=== PATIENT | male | born 1935 | race Caucasian/White ===

== ENCOUNTER 2017-02-24 10:09 | Emergency (ER) | payer MEDICARE, OTHER ==
[2017-02-24 10:16] VITALS: BP 156/111
[2017-02-24] MEDS ORDERED: NORMAL SALINE 1000 ML 1,000 ML IV ONE (10:23)
[2017-02-24] MEDS ORDERED: ONDANSETRON HCL INJ/PF 4 MG/2 ML SDV IV ONE (10:23)
[2017-02-24] MEDS ORDERED: MORPHINE SULFATE 10 MG/ML INJ IV ONE ×3 (10:23→11:35)
--- NOTE | 2017-02-24 10:26 | ER Document Report ---
ED Medical Screen (RME) - General Chief Complaint: Flank Pain Stated Complaint: FLANK PAIN Time Seen by Provider: 02/24/17 10:16 Mode of Arrival: Wheelchair Information source: Patient Notes: This is an 82-year-old male with multiple medical problems who presents with severe right flank pain. This pain began this morning upon awakening. He has had nausea and vomiting. He states this feels like prior kidney stones. No fevers or chills. He has a history of A. fib and is currently taking Pradaxa. He has not taken his medication today including his blood pressure medicine I have greeted and performed a rapid initial assessment of this patient. A comprehensive ED assessment and evaluation of the patient, analysis of test results and completion of the medical decision making process will be conducted by additional ED providers. TRAVEL OUTSIDE OF THE [place] IN LAST 30 DAYS: No - Related Data Allergies/Adverse Reactions: No Known Allergies Allergy (Verified 02/24/17 10:12) Past Medical History - Past Medical History Cardiac Medical History: Reports: Hx Coronary Artery Disease, Hx Hypercholesterolemia, Hx Hypertension Denies: Hx Atrial Fibrillation Pulmonary Medical History: Reports: Hx COPD - 1y fev1=38% started symbicort spiriva Renal/ Medical History: Reports: Hx Kidney Stones. 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 Physical Exam - Vital signs Vitals: Temp Pulse Resp BP Pulse Ox 97.6 F 99 22 H 156/111 H 93 02/24/17 10:13 02/24/17 10:13 02/24/17 10:02/24/17 10:13 02/24/17 10:13 - General In distress: Mild Notes: mild distress secondary to pain, alert and conversant - Cardiovascular Rhythm: Irregularly irregular Heart sounds: S1 appreciated, S2 appreciated Course - Vital Signs Vital signs: Temp Pulse Resp BP Pulse Ox 97.6 F 99 22 H 156/111 H 93 02/24/17 10:13 02/24/17 10:13 02/24/17 10:13 02/24/17 10:13 02/24/17 10:13
[2017-02-24 10:57] LABS: ABSOLUTE BASOPHILS # (AUTO) 0.1 10^3/uL (0.0-0.2); ABSOLUTE EOSINOPHILS # (AUTO) 0.4 10^3/uL (0.0-0.6); ABSOLUTE LYMPHOCYTES (AUTO) 2.1 10^3/uL (0.5-4.7); ABSOLUTE MONOCYTES (AUTO) 0.6 10^3/uL (0.1-1.4); BASOPHILS % (AUTO) 0.9 % (0-2); EOSINOPHILS % (AUTO) 2.9 % (0-6); HEMATOCRIT 48.4 % (37.9-51.0); HEMOGLOBIN 15.5 g/dL (13.5-17.0); HGB HCT DIFFERENCE -1.9; LYMPHOCYTES % (AUTO) 14.5 % (13-45); MEAN CORPUSCULAR HGB CONC 32.1 g/dL (32.0-36.0); MEAN CORPUSCULAR VOLUME 84 fl (80-97); MONOCYTES % (AUTO) 4.3 % (3-13); RED BLOOD COUNT 5.75 10^6/uL (4.35-5.55); RED CELL DISTRIBUTION WIDTH 15.1 % (11.5-14.0); SEGMENTED NEUTROPHILS % (AUTO) 77.4 % (42-78); WHITE BLOOD COUNT 14.3 10^3/uL (4.0-10.5)
[2017-02-24 11:06] LABS: APPEARANCE,URINE CLOUDY; BILIRUBIN,URINE NEGATIVE (NEGATIVE); GLUCOSE, URINE NEGATIVE (NEGATIVE); KETONES,URINE NEGATIVE (NEGATIVE); LEUKOCYTE ESTERASE,URINE NEGATIVE (NEGATIVE); NITRITE,URINE NEGATIVE (NEGATIVE); PROTEIN,URINE 100 mg/dL (NEGATIVE); URINE SPECIFIC GRAVITY 1.016; UROBILINOGEN,URINE NEGATIVE mg/dL (<2.0)
[2017-02-24 11:14] LABS: ALANINE AMINOTRANSFERASE 26 U/L (21-72); ALBUMIN 4.1 g/dL (3.5-5.0); ALKALINE PHOSPHATASE 84 U/L (38-126); ANION GAP 13 (5-19); ASPARTATE AMINO TRANSFERASE 25 U/L (17-59); BILIRUBIN,DIRECT 0.4 mg/dL (0.0-0.4); BILIRUBIN,TOTAL 0.8 mg/dL (0.2-1.3); BLOOD UREA NITROGEN 23 mg/dL (7-20); CALCIUM 9.2 mg/dL (8.4-10.2); CARBON DIOXIDE 22 mmol/L (22-30); CHLORIDE 106 mmol/L (98-107); CREATININE RESULT 1.03 mg/dL (0.52-1.25); GLUCOSE 174 mg/dL (75-110); POTASSIUM 4.7 mmol/L (3.6-5.0); SODIUM 140.8 mmol/L (137-145); TOTAL PROTEIN 7.3 g/dL (6.3-8.2)
--- NOTE | 2017-02-24 11:21 | RADIOLOGY REPORT (SQ) ---
EXAM DESCRIPTION: CT LTD RENAL STONE PROTOCOL ON COMPLETED DATE/TIME: 02/24/2017 11:04 am REASON FOR STUDY: right flank pain COMPARISON: None. TECHNIQUE: CT scan of the abdomen and pelvis performed without intravenous or oral contrast. Images reviewed with lung, soft tissue, and bone windows. Reconstructed coronal and sagittal MPR images revi ewed. All images stored on PACS. All CT scanners at this facility use dose modulation, iterative reconstruction, and/or weight based d osing when appropriate to reduce radiation dose to as low as reasonably achievable (ALARA). [facility]: Dose Right [facility]: CareDose [facility]: Dose Right [facility]: Teradose 4D [facility]: Page365 RADIATION DOSE: 10.46mGy. LIMITATIONS: None. FINDINGS: LOWER CHEST: No significant findings. No nodules or infiltrates. NON-CONTRASTED LIVER, SPLEEN, ADRENALS: Evaluation limited by lack of IV contrast. No identified sign ificant masses. PANCREAS: No masses. No peripancreatic inflammatory changes. GALLBLADDER: No identified stones by CT criteria. No inflammatory changes to suggest cholecystitis. RIGHT KIDNEY AND URETER: No suspicious masses. Assessment limited by lack of IV contrast. Several c alculi within the right kidney with mild to moderate hydronephrosis and perinephric stranding seconda ry to 4 mm calculus within the proximal ureter. LEFT KIDNEY AND URETER: No suspicious masses. Assessment limited by lack of IV contrast. No signifi cant calcifications. No hydronephrosis or hydroureter. AORTA AND RETROPERITONEUM: Atherosclerotic calcifications. No aneurysm. No retroperitoneal masses or adenopathy. BOWEL AND PERITONEAL CAVITY: Scattered colonic diverticula. No obvious masses or inflammatory change s. No free fluid. APPENDIX: Normal. PELVIS, BLADDER, AND ABDOMINAL WALL:No abnormal masses. No free fluid. Bladder normal. Tiny fat cont aining periumbilical and bilateral inguinal hernias. BONES: Stable degree of degenerative change without fracture or suspicious osseous lesion. OTHER: No other significant finding. IMPRESSION: RIGHT-SIDED NEPHROLITHIASIS WITH MILD TO MODERATE HYDRONEPHROSIS SECONDARY TO 4 MM CALCU NUBIA WITHIN THE PROXIMAL URETER. ADDITIONAL CHRONIC CHANGES ABOVE. TECHNICAL DOCUMENTATION: JOB ID: [id number] Quality ID # [id number]: Final reports with documentation of one or more dose reduction techniques (e.g., Au tomated exposure control, adjustment of the mA and/or kV according to patient size, use of iterative reconstruction technique) 2010 [facility], [place] [employer]- All Rights Reserved
[2017-02-24] MEDS ORDERED: KETOROLAC TROMETHAMINE INJ/PF 30 MG/1 ML SDV IV ONE (11:35)
[2017-02-24] MEDS ORDERED: TAMSULOSIN HCL 0.4 MG CAP.SR.24H PO ONE (11:37)
--- NOTE | 2017-02-24 12:36 | ER Document Report ---
ED General - General Chief Complaint: Flank Pain Stated Complaint: FLANK PAIN Time Seen by Provider: 02/24/17 10:16 Mode of Arrival: Wheelchair TRAVEL OUTSIDE OF THE [place] IN LAST 30 DAYS: No - HPI Patient complains to provider of: Right flank pain Notes: Patient is coming in for evaluation of right flank pain. Patient states right flank pain started last night. Patient states history of kidney stones pain feels similar to his kidney stones in the past. States he is nauseous denies vomiting. Patient has a history of atrial fibrillations currently on Pradaxa. Patient denies any fevers chills dysuria hematuria - Related Data Allergies/Adverse Reactions: No Known Allergies Allergy (Verified 02/24/17 10:12) Past Medical History - General Information source: Patient - Social History Smoking Status: Former Smoker Chew tobacco use (# tins/day): No Frequency of alcohol use: None Drug Abuse: None Family History: Reviewed & Not Pertinent Patient has suicidal ideation: No Patient has homicidal ideation: No - Past Medical History Cardiac Medical History: Reports: Hx Coronary Artery Disease, Hx Hypercholesterolemia, Hx Hypertension Denies: Hx Atrial Fibrillation Pulmonary Medical History: Reports: Hx COPD - 1y fev1=38% started symbicort spiriva Renal/ Medical History: Reports: Hx Kidney Stones. 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 Review of Systems - Review of Systems Constitutional: No symptoms reported EENT: No symptoms reported Cardiovascular: No symptoms reported Respiratory: No symptoms reported Gastrointestinal: No symptoms reported Genitourinary: Flank pain Male Genitourinary: No symptoms reported Musculoskeletal: No symptoms reported Skin: No symptoms reported Hematologic/Lymphatic: No symptoms reported Neurological/Psychological: No symptoms reported -: Yes All other systems reviewed and negative Physical Exam - Vital signs Vitals: Temp Pulse Resp BP Pulse Ox 97.6 F 99 22 H 156/111 H 93 02/24/17 10:13 02/24/17 10:13 02/24/17 10:13 02/24/17 10:13 02/24/17 10:13 Interpretation: Normal - General General appearance: Appears well, Alert - HEENT Head: Normocephalic, Atraumatic Eyes: Normal Pupils: PERRL - Respiratory Respiratory status: No respiratory distress Chest status: Nontender Breath sounds: Normal Chest palpation: Normal - Cardiovascular Rhythm: Regular Heart sounds: Normal auscultation Murmur: No - Abdominal Inspection: Normal Distension: No distension Bowel sounds: Normal Tenderness: Nontender Organomegaly: No organomegaly - Back Back: Normal, Nontender - Extremities General upper extremity: Normal inspection, Nontender, Normal color, Normal ROM , Normal temperature General lower extremity: Normal inspection, Nontender, Normal color, Normal ROM , Normal temperature, Normal weight bearing. No: Megha's sign - Neurological Neuro grossly intact: Yes Cognition: Normal Orientation: AAOx4 [place] Coma Scale Eye Opening: Spontaneous [place] Coma Scale Verbal: Oriented [place] Coma Scale Motor: Obeys Commands [place] Coma Scale Total: 15 Speech: Normal Motor strength normal: LUE, RUE, LLE, RLE Sensory: Normal - Psychological Associated symptoms: Normal affect, Normal mood - Skin Skin Temperature: Warm Skin Moisture: Dry Skin Color: Normal Course - Re-evaluation Re-evalutation: 02/24/17 15:02 Patient coming in for right flank pain. CT scan shows 4 mm mid ureteral stone. No other signs and symptoms of critical pathology. Patient will be discharged home follow-up with his primary care physician. Patient was warned about the use of opiate medications. - Vital Signs Vital signs: Temp Pulse Resp BP Pulse Ox 97.6 F 99 17 156/111 H 90 L 02/24/17 10:13 02/24/17 10:13 02/24/17 12:02 02/24/17 10:13 02/24/17 12:02 - Laboratory Result Diagrams: 02/24/17 10:30 02/24/17 10:30 Laboratory results interpreted by me: 02/24/17 02/24/17 02/24/17 10:30 10:30 10:41 WBC 14.3 H RBC 5.75 H RDW 15.1 H Absolute Neutrophils 11.0 H BUN 23 H Glucose 174 H Urine Protein 100 H Urine Blood LARGE H Discharge - Discharge Clinical Impression: Kidney stone on right side Condition: Good Disposition: HOME, SELF-CARE Instructions: Kidney Stone ([facility]), Oral Narcotic Medication ([facility]) Additional Instructions: Your CAT scan today shows signs of a right-sided kidney stone 4 mm. Please make sure that she drink plenty water to help passage of the stone. We will give the pain medication hydrocodone or Vicodin. Please be careful in taking his medication and that this will increase risk of falling also cause constipation. I highly recommend that if you take the pain medication prescribed that you take a stool softener. He may also take Tylenol for pain control. The Zofran prescription is for nausea. Flomax is to aid in passage of the kidney stone. I would recommend following up with your primary care physician for possible referral to a urologist if you do not pass this kidney stone. Prescriptions: Ondansetron [Zofran Odt 4 mg Tablet] 4 mg PO Q4HP PRN #30 tab.rapdis PRN Reason: Docusate Sodium [Colace 100 mg Capsule] 100 mg PO DAILY #30 capsule Hydrocodone Bit/Acetaminophen [Hydrocodon-Acetaminophen 5-325] 1 each PO Q6 #20 tablet Tamsulosin HCl [Flomax] 0.4 mg PO DAILY #7 cap.er.24h
--- NOTE | 2017-02-26 09:29 | EKG REPORT ---
SEVERITY:- ABNORMAL ECG - ATRIAL FIBRILLATION MULTIFORM VENTRICULAR PREMATURE COMPLEXES BORDERLINE LEFT AXIS DEVIATION BORDERLINE PROLONGED QT INTERVAL : Confirmed by: Agustin Frances 26-Feb-2017 09:27:59
== END 2017-02-24 14:02 | disposition home or self-care (01) ==
LOC: ER 10:09
DX: N13.2 Hydronephrosis with renal and ureteral calculous obstruction (principal); R10.9 Unspecified abdominal pain; J44.9 Chronic obstructive pulmonary disease, unspecified; I25.10 Atherosclerotic heart disease of native coronary artery without angina pectoris; I10 Essential (primary) hypertension; I48.91 Unspecified atrial fibrillation; Z79.02 Long term (current) use of antithrombotics/antiplatelets; Z87.891 Personal history of nicotine dependence
CPT/HCPCS: 93005; 96376; 99284; 96374; 96375; 36415; 85025; 80053; 81001; 76380; 93010; J1885; J2270; A9270; J2405; J7030

== ENCOUNTER 2020-09-13 11:21 | Emergency (ER) | payer MEDICARE, OTHER ==
[2020-09-13 11:31] VITALS: BP 104/46
[2020-09-13] MEDS ORDERED: METHYLPREDNISOLONE INJ 125 MG/2 ML SDV IV ONE (12:55)
[2020-09-13] MEDS ORDERED: IPRATROPIUM/ALBUTEROL 0.5-2.5 MG/3 ML AMPUL NEB ONE (12:55)
--- NOTE | 2020-09-13 13:00 | ER Document Report ---
ED Medical Screen (RME) - General Chief Complaint: Cough Stated Complaint: CONJESTION Time Seen by Provider: 09/13/20 12:54 Primary Care Provider: ARIANNE DUNCAN MD [Primary Care Provider] - Follow up as needed Mode of Arrival: Ambulatory Information source: Patient, Relative Notes: Patient with an 85-year-old male comes emergency room brought in by his and sent Here by Dr. Santa patient and family patient started with a feeling that approximately 1 month ago or longer. On the he saw his physician and placed on antibiotics in the emergency room which will resolve. Not getting any better and the was called by his primary today to go any diagnosed you with pneumonia and sent him to the emergency room. Patient denies any history of fevers. He is not having a productive cough he has just been getting more more short of breath. Physical examination: Patient is a well-nourished no apparent stress examination today. Cardiac but frail-appearing 85-year-old male Cardiac: Patient displaying a regular rate and rhythm currently at 91 bpm. No murmur auscultated. Lungs: Bilateral breath sounds that are increased throughout patient is course rhonchi and respiratory expiratory wheeze noted throughout all lung knight. Abdomen: Bowel sounds present in all 4 quads. Nontender to palpation. I have greeted and performed a rapid initial assessment of this patient. A comprehensive ED assessment and evaluation of the patient, analysis of test results and completion of the medical decision making process will be conducted by additional ED providers. Dictation of this chart was performed using voice recognition software; therefore, there may be some unintended grammatical errors. TRAVEL OUTSIDE OF THE [place] IN LAST 30 DAYS: No - Related Data Allergies/Adverse Reactions: No Known Allergies Allergy (Verified 09/13/20 12:53) Home Medications: pradaxa, atorvastatin, spiriva, telmisartan, advair Past Medical History - Social History Chew tobacco use (# tins/day): No Drug Abuse: None - Past Medical History Cardiac Medical History: Reports: Hx Coronary Artery Disease, Hx Hypercholesterolemia, Hx Hypertension Denies: Hx Atrial Fibrillation Pulmonary Medical History: Reports: Hx COPD - 1y fev1=38% started symbicort spiriva Renal/ Medical History: Reports: Hx Kidney Stones. 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
[2020-09-13 14:26] LABS: ABSOLUTE BASOPHILS # (AUTO) 0.1 10^3/uL (0.0-0.2); ABSOLUTE EOSINOPHILS # (AUTO) 0.1 10^3/uL (0.0-0.6); ABSOLUTE MONOCYTES (AUTO) 1.3 10^3/uL (0.1-1.4); ABSOLUTE NEUT (AUTO) 10.6 10^3/uL (1.7-8.2); BASOPHILS % (AUTO) 0.6 % (0-2); EOSINOPHILS % (AUTO) 0.4 % (0-6); HEMATOCRIT 49.9 % (37.9-51.0); HEMOGLOBIN 16.7 g/dL (13.5-17.0); MEAN CORPUSCULAR HEMOGLOBIN 27.8 pg (27.0-33.4); MEAN CORPUSCULAR HGB CONC 33.4 g/dL (32.0-36.0); MEAN CORPUSCULAR VOLUME 83 fl (80-97); MONOCYTES % (AUTO) 9.6 % (3-13); PLATELET COUNT 234 10^3/uL (150-450); RED BLOOD COUNT 5.99 10^6/uL (4.35-5.55); RED CELL DISTRIBUTION WIDTH 15.9 % (11.5-14.0); SEGMENTED NEUTROPHILS % (AUTO) 75.4 % (42-78); TOTAL CELLS COUNTED % (AUTO) 100 %
[2020-09-13 14:48] LABS: ALBUMIN 3.6 g/dL (3.5-5.0); ALKALINE PHOSPHATASE 56 U/L (38-126); ANION GAP 7 (5-19); ASPARTATE AMINO TRANSFERASE 38 U/L (17-59); BILIRUBIN,DIRECT 0.1 mg/dL (0.0-0.4); BILIRUBIN,TOTAL 1.7 mg/dL (0.2-1.3); BLOOD UREA NITROGEN 28 mg/dL (7-20); CALCIUM 9.2 mg/dL (8.4-10.2); CARBON DIOXIDE 30 mmol/L (22-30); CHLORIDE 101 mmol/L (98-107); GLUCOSE 116 mg/dL (75-110); POTASSIUM 4.3 mmol/L (3.6-5.0); TOTAL PROTEIN 6.3 g/dL (6.3-8.2)
--- NOTE | 2020-09-13 15:25 | RADIOLOGY REPORT (SQ) ---
EXAM DESCRIPTION: CHEST SINGLE VIEW IMAGES COMPLETED DATE/TIME: 09/13/2020 3:14 pm REASON FOR STUDY: cough COMPARISON: 07/19/2015 EXAM PARAMETERS: NUMBER OF VIEWS: One view. TECHNIQUE: Single frontal radiographic view of the chest acquired. RADIATION DOSE: NA LIMITATIONS: None. FINDINGS: LUNGS AND PLEURA: Patchy left basilar airspace disease with small left effusion. No pneum othorax. Mild hyperinflation. MEDIASTINUM AND HILAR STRUCTURES: No masses. Contour normal. HEART AND VASCULAR STRUCTURES: Normal heart size. Vascular calcifications. BONES: No acute findings. HARDWARE: None in the chest. OTHER: No other significant finding. IMPRESSION: Patchy left basilar airspace disease with small left pleural effusion. TECHNICAL DOCUMENTATION: JOB ID: [id number] 2010 [employer]- All Rights Reserved Reading location - IP/workstation name: [email or web address]
--- NOTE | 2020-09-13 21:42 | ER Document Report ---
ED General - General Chief Complaint: Cough Stated Complaint: CONJESTION Time Seen by Provider: 09/13/20 12:54 Primary Care Provider: ARIANNE DUNCAN MD [COMMUNITY BASED STAFF] - Follow up as needed Mode of Arrival: Ambulatory TRAVEL OUTSIDE OF THE [place] IN LAST 30 DAYS: No - HPI Notes: 85-year-old male presents with cough. Patient states that he has had a cough occasionally productive of phlegm, shortness of breath and sinus drainage, all going on for the past 1 month. States that he was recently on an antibiotic for pneumonia. He went to see his primary care doctor today and was told that he has pneumonia and was told to come to the emergency department. He states that he is being sent to have a chest x-ray and a Covid swab. He does not believe that any new antibiotics were prescribed. He also states that he is having some right ankle swelling which he showed his doctor and was told it was a bruise. He reports somewhat chronic shortness of breath due to COPD. He currently denies chest pain, fever, N/V/D, or abdominal pain. - Related Data Allergies/Adverse Reactions: No Known Allergies Allergy (Verified 09/13/20 12:53) Home Medications: pradaxa, atorvastatin, spiriva, telmisartan, advair Past Medical History - General Information source: Patient, Relative - Social History Smoking Status: Former Smoker Chew tobacco use (# tins/day): No Drug Abuse: None Family History: Reviewed & Not Pertinent - Past Medical History Cardiac Medical History: Reports: Hx Coronary Artery Disease, Hx Hypercholesterolemia, Hx Hypertension Denies: Hx Atrial Fibrillation Pulmonary Medical History: Reports: Hx COPD - 1y fev1=38% started symbicort spiriva Renal/ Medical History: Reports: Hx Kidney Stones. 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 Review of Systems - Review of Systems Constitutional: denies: Fever EENT: No symptoms reported Cardiovascular: denies: Chest pain Respiratory: See HPI Gastrointestinal: No symptoms reported Genitourinary: No symptoms reported Male Genitourinary: No symptoms reported Musculoskeletal: Ankle swelling Skin: Change in color - Ja Hematologic/Lymphatic: No symptoms reported Neurological/Psychological: No symptoms reported Physical Exam - Vital signs Vitals: Temp Pulse Resp BP Pulse Ox 97.9 F 91 18 104/46 L 95 12/28/20 11:28 09/13/20 11:28 09/13/20 11:28 09/13/20 11:28 09/13/20 11:28 - General General appearance: Appears well, Alert In distress: None - HEENT Head: Normocephalic, Atraumatic Extraocular movements intact: Yes Pupils: PERRL - Respiratory Respiratory status: No respiratory distress. No: Labored, Tachypnea Breath sounds: Rhonchi - Left base. No: Wheezing - Cardiovascular Rhythm: Irregularly irregular Heart sounds: Normal auscultation Normal capillary refill: Yes - Abdominal Tenderness: Nontender - Extremities General lower extremity: No: Edema Notes: There is ecchymosis inferior to the right medial ankle, no tenderness, mild associated swelling - Neurological Neuro grossly intact: Yes Cognition: Normal Orientation: AAOx4 - Psychological Associated symptoms: Normal affect - Skin Skin Temperature: Warm Course - Re-evaluation Re-evalutation: 85-year-old male here with productive cough and shortness of breath, history of COPD, seen by his PCP today and clinically diagnosed with pneumonia. On exam patient is alert and well-appearing, he is afebrile and hemodynamically stable, he is not hypoxic on room air. He does have some rhonchi in the left lower lobe. He does not appear to be overtly edematous. Chest x-ray done through triage which does show a left lower consolidation. Reviewed labs obtained. Leukocytosis present, expect given his pneumonia. Electrolytes within normal limits. Creatinine within normal limits. No elevation of lactic acidosis. LFTs within normal limits. Will add on BNP. Start treatment with guaifenesin and Augmentin. Patient's EKG showing A. fib with RVR, at time of exam patient with normal rate. BNP elevated to the 600s, he has no previous values to compare to. Given no peripheral edema and no pulmonary edema, believe that he will be able to follow- up with his primary care doctor for an echo. I discussed results with patient. He is eager to go home. Will prescribe Augmentin and azithromycin given his comorbidities. Strict return precautions given, stable at time of discharge. - Vital Signs Vital signs: Temp Pulse Resp BP Pulse Ox 97.9 F 91 18 104/46 L 95 09/13/20 11:28 09/13/20 11:28 09/13/20 11:28 09/13/20 11:28 09/13/20 11:28 - Laboratory Results Result Diagrams: 09/13/20 13:59 09/13/20 13:59 Laboratory Results Interpreted: 09/13/20 09/13/20 09/13/20 13:59 13:59 13:59 WBC 14.0 H RBC 5.99 H RDW 15.9 H Absolute Neuts (auto) 10.6 H BUN 28 H Glucose 116 H Total Bilirubin 1.7 H NT-Pro-B Natriuret Pep 688 H Critical Laboratory Results Reviewed: No Critical Results - Radiology Results Critical Radiology Results Reviewed: No Critical Results - EKG Interpretation by Me Additional EKG results interpreted by me: EKG is interpreted by me. A. fib with RVR, rate 143. Narrow QRS, prolonged QT. ST segment depression, likely rate related. No STEMI. Discharge - Discharge Clinical Impression: CAP (community acquired pneumonia) Qualifiers: Laterality: left Lung location: lower lobe of lung Qualified Code(s): J18.9 - Pneumonia, unspecified organism Disposition: HOME, SELF-CARE Instructions: COVID-19 Guidance for Persons Under Investigation Additional Instructions: Please begin antibiotics for pneumonia. You should receive Covid swab results in 2 to 3 days. Please quarantine at home until the results received. Please have close follow-up with your primary care doctor, discussed obtaining outpatient echo to evaluate for signs of heart failure. Return to the emergency department for any concerning worsening symptoms. Prescriptions: Amoxicillin/Potassium Clav [Augmentin 875-125 Tablet] 1 tab PO Q12 7 Days #14 tablet Azithromycin 250 mg PO ASDIR 5 Days #6 tablet Referrals: ARIANNE DUNCAN MD [COMMUNITY BASED STAFF] - Follow up as needed
[2020-09-13] MEDS ORDERED: AMOXICILLIN TR/POT CLAVULANATE 875-125 MG TAB PO ONE (22:04)
--- NOTE | 2020-09-14 08:58 | EKG REPORT ---
SEVERITY:- ABNORMAL ECG - ATRIAL FIBRILLATION, V-RATE 113-[address] DEPRESSION, PROBABLY RATE RELATED PROLONGED QT INTERVAL : Confirmed by: Christopher Matute MD 14-Sep-2020 08:58:10
== END 2020-09-13 23:01 | disposition home or self-care (01) ==
LOC: ER 11:21
DX: J18.9 Pneumonia, unspecified organism (principal); J44.0 Chronic obstructive pulmonary disease with (acute) lower respiratory infection; S90.01XA Contusion of right ankle, initial encounter; X58.XXXA Exposure to other specified factors, initial encounter; I48.91 Unspecified atrial fibrillation; I25.10 Atherosclerotic heart disease of native coronary artery without angina pectoris; E78.00 Pure hypercholesterolemia, unspecified; I10 Essential (primary) hypertension; Z79.02 Long term (current) use of antithrombotics/antiplatelets; Z79.899 Other long term (current) drug therapy; Z79.51 Long term (current) use of inhaled steroids; Z20.828 Contact with and (suspected) exposure to other viral communicable diseases; Z87.891 Personal history of nicotine dependence
CPT/HCPCS: 93005; 99285; 36415; 87040; 87070; 87880; 83605; 85025; 80053; 83880; 71045; 93010; U0003; J3490; C9803; 87635

== ENCOUNTER → 2020-10-08 | Outpatient (CLI) | payer MEDICARE, OTHER ==
--- NOTE | 2020-10-08 10:06 | RADIOLOGY REPORT (SQ) ---
EXAM DESCRIPTION: CHEST 2 VIEWS IMAGES COMPLETED DATE/TIME: 10/08/2020 9:54 am REASON FOR STUDY: (J43.9)EMPHYSEMA, UNSPECIFIED COMPARISON: AP view of the chest from 09/13/2020. EXAM PARAMETERS: NUMBER OF VIEWS: Two views. TECHNIQUE: PA and lateral views of the chest were obtained. RADIATION DOSE: NA LIMITATIONS: None. FINDINGS: LUNGS AND PLEURA: Increased consolidation in the inferior aspect of the left lung associat ed with volume loss given the elevation of the left hemidiaphragm. The left lateral costophrenic sul cus is blunted. The right lung is clear. MEDIASTINUM AND HILAR STRUCTURES: Mild leftward mediastinal shift. HEART AND VASCULAR STRUCTURES: The cardiac silhouette is partially obscured. BONES: No acute findings. HARDWARE: None in the chest. OTHER: No other finding. IMPRESSION: 1. Increased consolidation in the inferior aspect of the left lung associated with volum e loss given the elevation of the left hemidiaphragm and mild leftward mediastinal shift. Clinical c orrelation to exclude a pneumonia is recommended. 2. Left pleural effusion. TECHNICAL DOCUMENTATION: JOB ID: [id number] 2010 [employer]- All Rights Reserved Reading location - IP/workstation name: [email or web address]
== END ==
LOC: RAD 09:36
PROVIDERS: ATTEND Internal Medicine Pulmonary Disease
DX: J43.9 Emphysema, unspecified (principal); J90 Pleural effusion, not elsewhere classified
CPT/HCPCS: 71046

== ENCOUNTER → 2020-10-13 | Outpatient (CLI) | payer MEDICARE, OTHER ==
[2020-10-13 11:24] VITALS: BP 97/69
--- NOTE | 2020-10-13 11:25 | ER RDC ASSESSMENT REPORT ---
Intake - In the Last 14 days Have you traveled outside [place]?: No Have you been in close contact with someone CONFIRMED: No Worked in Healthcare?: No - Symptoms Subjective Fever(Jerome feverish): No Chills: No Muscule Aches: No Runny Nose: No Sore Throat: No Cough (New or worsening chronic cough): Yes Shortness of breath: Yes Nausea or Vomiting: No Headache: No Abdominal Pain: No Diarrhea(3 or more loose stools in last 24 hours): No - Do you have any of the following Chronic lung disease: Asthma or emphysema or COPD: Yes Cystic Fibrosis: No Diabetes: No High Blood Pressure: Yes Cardiovascular Disease: Yes Chronic Kidney Disease: No Chronic Liver Disease: No Chronic blood disorder like Sickle Cell Disease: No Weak immune system due to disease or medication: Yes Neurologic condition that limits movement: No Developmental delay - Moderate to Severe: No Morbid Obesity (>100 pounds over ideal weight): No - Objective Temperature: 97.8 F Pulse Rate: 111 Respiratory Rate: 16 Blood Pressure: 97/69 O2 Sat by Pulse Oximetry: 92 - 2 LPM Objective: Given above, testing performed: covid Disposition: Home; Selfcare General - General Stated Complaint: cough Time Seen by Provider: 10/13/20 11:00 Mode of Arrival: Ambulatory Information source: Patient - HPI Notes: 85-year-old male presents to [facility] clinic for COVID-19 testing. Patient reports no known contact with Covid positive individual. Patient does report recent diagnosis of pneumonia and left lower lobe atelectasis. Patient states he was recently seen in ER where he was started on supplemental oxygen at 2 L/min. Patient also recently seen by manager animation Dr. Meredith and has plans for bronch next week. Dr. Meredith also placed him on course of 2 antibiotics which he is currently taking as ordered. Patient requires clear Covid test before proceeding with bronch. Patient states he was tested for flu Covid strep and other concerns when in the ER last week. Patient is unknown onset of symptoms. He is reporting cough productive at times of clear to yellow phlegm. Patient also has some shortness of breath but this is adequately treated with the supplemental oxygen. Patient does have underlying COPD. O2 sats noted to be 92% on 2 L/min pulsed dosing at today's visit. Patient denies any change in taste or smell, fever or chills, muscle aches, runny nose or sore throat, GI upset, or headache. - Related Data Allergies/Adverse Reactions: No Known Allergies Allergy (Verified 09/13/20 12:53) Past Medical History - General Information source: Patient - Social History Smoking Status: Former Smoker Family History: Reviewed & Not Pertinent - Past Medical History Cardiac Medical History: Reports: Hx Coronary Artery Disease, Hx Hypercholesterolemia, Hx Hypertension Denies: Hx Atrial Fibrillation Pulmonary Medical History: Reports: Hx COPD - 1y fev1=38% started symbicort spiriva Neurological Medical History: Reports: None Endocrine Medical History: Reports: None Renal/ Medical History: Reports: Hx Kidney Stones. Denies: Hx Peritoneal Dialysis Malignancy Medical History: Reports None GI Medical History: Reports: Hx Gastroesophageal Reflux Disease Musculoskeletal Medical History: Reports Hx Arthritis - wrists Skin Medical History: Reports None Psychiatric Medical History: Reports: None Traumatic Medical History: Reports: None Infectious Medical History: Reports: None Past Surgical History: Reports: None Physical Exam - General In distress: None Notes: PHYSICAL EXAMINATION: GENERAL: Ill-appearing, cachectic, but in no acute distress. HEAD: Atraumatic, normocephalic. EYES: sclera anicteric, conjunctiva are normal. ENT: nares patent. Moist mucous membranes. NECK: Normal range of motion, supple without lymphadenopathy. LUNGS: No increased work of breathing supplemental oxygen at 2 L/min. Lung sounds-absent left lower lobe-known pneumothorax with plan for bronch next week, diminished right lower lobe. No wheezes rales or rhonchi. HEART: Regular rate and rhythm without murmurs. ABDOMEN: Soft, nontender, normal bowel sounds, no guarding. EXTREMITIES: Normal range of motion, no pitting edema. No cyanosis. NEUROLOGICAL: A&O x 3. Normal speech. PSYCH: Normal mood, normal affect. SKIN: Warm, Dry, normal turgor, no rashes or lesions noted Patient Education/Counseling Counseling/Education: Patient presents with symptoms associated with possible Covid 19 infection. Patient does not have emergency worrying symptoms such as difficulty breathing, shortness of breath, chest pain, pressure, confusion or cyanosis. Patient appears suitable for discharge as vital signs are stable and patient is nontoxic in appearance. Good return precautions have been discussed with patient, patient verbalized understanding and is agreeable with discharge plan of care at this time. Guidance for worsening S/SX: As a person under investigation for Covid 19, the [facility] of Health and Human Services, division of public health advises you to adhere to the following guidance until your test results are reported to you. If your test result is positive, you will receive additional information from your provider and your local health department at that time. Remain at home until you are cleared by the health provider or public health authorities. Keep a log of visitors to your home, notify any visitors to your home of your isolation status. If you plan to move to a new address or leave the county, notify the local health department in your County. Call your doctor or seek care if you have an urgent medical need. Before seeking medical care, call ahead to get instructions from the provider before arriving at the medical office clinic or hospital. Notify them that you are being tested for the virus that causes Covid 19 so that arrangements can be made, as necessary, to prevent transmission to others in the healthcare setting. Next, notify the local health department in your county. If a medical emergency arises and you need to call 911, inform the first respo nders that you are being tested for the virus that causes Covid 19. Next, notify the local health department in your county. RDC Discharge - Discharge Clinical Impression: Encounter for screening laboratory testing for COVID-19 virus Pneumonia Qualifiers: Pneumonia type: due to unspecified organism Laterality: unspecified laterality Lung location: unspecified part of lung Qualified Code(s): J18.9 - Pneumonia, unspecified organism Condition: Stable Disposition: Home; Selfcare
== END ==
LOC: RDC 10:36
PROVIDERS: ATTEND Registered Nurse
DX: J18.9 Pneumonia, unspecified organism (principal); Z20.822 Contact with and (suspected) exposure to COVID-19; R05 Cough; R06.02 Shortness of breath; I10 Essential (primary) hypertension; J44.9 Chronic obstructive pulmonary disease, unspecified; I25.10 Atherosclerotic heart disease of native coronary artery without angina pectoris; E78.00 Pure hypercholesterolemia, unspecified; K21.9 Gastro-esophageal reflux disease without esophagitis; Z87.891 Personal history of nicotine dependence
CPT/HCPCS: U0003; C9803; 87635; 99202; 99211